=== PATIENT | male | born 1975 | race Two or more races ===

== ENCOUNTER 2020-12-24 00:08 | Emergency (ER) | payer SELFPAY ==
[~2020-12-24] VITALS: Ht 165.1 cm; Wt 86.2 kg
[2020-12-24 01:30] VITALS: BP 145/100
[2020-12-24] MEDS ORDERED: KETOROLAC TROMETH 60MG/2ML VIAL IM ONE (01:45)
== END 2020-12-24 01:51 | disposition home or self-care (01) ==
LOC: ER 00:08
DX: K04.7 Periapical abscess without sinus (principal)
CPT/HCPCS: 96372; 99283; J1885